=== PATIENT | female | born 1965 | race Caucasian/White ===

== ENCOUNTER 2022-01-15 20:40 | Outpatient (CLI) | payer OTHER, SELFPAY ==
--- NOTE | 2022-02-06 08:46 | W.PM.SLEEP ---
Sleep Study Details Details Interpreting Provider: Aric Aparicio MD Date of Sleep Study: 01/15/22 Sleep Study Details: STUDY TYPE: Hospital-based ? BMI:? 35.8 ORDERING PROVIDER:? Viviana INDICATION:? Concerns about sleep apnea ? SLEEP SUMMARY:? Sleep time 402 minutes, latency 11 minutes, REM latency 245 minutes, efficiency 89.2% RESPIRATORY SUMMARY:? Mean oxygen awake 95, asleep 94, minimum 89 AHI 8.8, RDI 12.7, REM AHI 9.2 Supine AHI 16, supine REM AHI 15.8 Nonsupine AHI 2.8, nonsupine RDI 5.8 PERIODIC LIMB MOVEMENTS OF SLEEP:? None CARDIAC:? Awake 65, asleep 57. No arrhythmias noted IMPRESSION:? Mild obstructive sleep apnea with supine position dependency RECOMMENDATION: Treatment options would include AutoSet CPAP, dental appliance. Weight loss is recommended
== END 2022-01-15 20:41 | disposition home or self-care (01) ==
LOC: SLEEP 20:40
PROVIDERS: PCP Physician Assistant Medical; Visit Provider Physician Assistant Medical
DX: G47.33 Obstructive sleep apnea (adult) (pediatric) (principal)
CPT/HCPCS: 95810

== ENCOUNTER 2022-05-24 09:11 | Outpatient (CLI) | payer OTHER, SELFPAY | END 2022-05-24 09:12 | disposition home or self-care (01) | LOC: NFLDREF 05-26 08:21 | PROVIDERS: PCP Physician Assistant Medical; Referring Provider Physician Assistant Medical; Visit Provider Nurse Practitioner Family | DX: Z79.899 Other long term (current) drug therapy (principal) | CPT/HCPCS: 82306; 84439; 84443 ==

== ENCOUNTER 2022-06-04 13:31 | Outpatient (CLI) | payer OTHER, SELFPAY ==
--- NOTE | 2022-06-04 14:00 | CRLHL7_ITS ---
For Patients: As a result of the Century Cures Act, medical imaging exams and procedure reports are released immediately into your electronic medical record. You may view this report before your referring provider. If you have questions, please contact your health care provider. INDICATION: Low TSH COMPARISON: none TECHNIQUE: Mcdonald scale and color Doppler images were acquired of the thyroid gland. FINDINGS: There is a 7 x 4 x 6 millimeter nodule within the right thyroid lobe. This does not require follow-up. The thyroid echotexture is diffusely heterogeneous. The right lobe measures 4.4 x 1.4 x 1.4 cm and the left lobe measures 3.7 x 0.9 x 1.0 cm in size. The isthmus measures 2 millimeters. The color Doppler images demonstrate decreased vascularity. There is no evidence of cervical lymphadenopathy or parathyroid mass. IMPRESSION: Diffusely heterogeneous thyroid with overall decreased vascularity. Benign 7 millimeter nodule right thyroid lobe. Dictated by Barry Amaral MD @ 06/05/2022 6:55:25 AM (Electronically Signed)
== END 2022-06-04 13:32 | disposition home or self-care (01) ==
LOC: US 13:32
PROVIDERS: PCP Physician Assistant Medical; Visit Provider Physician Assistant Medical
DX: R79.89 Other specified abnormal findings of blood chemistry (principal); E04.1 Nontoxic single thyroid nodule
CPT/HCPCS: 76536

== ENCOUNTER 2023-06-24 10:31 | Outpatient (CLI) | payer OTHER, SELFPAY ==
[2023-06-24 23:37] LABS: Chlamydia DNA Amplified* NOT DETECTED (No Detected); GC DNA Amplified* NOT DETECTED (No Detected)
== END 2023-06-24 10:32 | disposition home or self-care (01) ==
PROVIDERS: PCP Physician Assistant Medical; Visit Provider Physician Assistant Medical
DX: R79.89 Other specified abnormal findings of blood chemistry (principal); E04.1 Nontoxic single thyroid nodule; Z80.41 Family history of malignant neoplasm of ovary; Z13.220 Encounter for screening for lipoid disorders; Z11.3 Encounter for screening for infections with a predominantly sexual mode of transmission
CPT/HCPCS: 80061; 82306; 84305; 84443; 86140; 86304; 86703; 86803; 87491; 87591

== ENCOUNTER 2023-07-08 12:27 | Outpatient (CLI) | payer OTHER, SELFPAY ==
--- OUTSIDE RECORDS SUMMARY | 2023-07-08 12:31 | XMS_ITS | Data Portability ---
Author Name Unknown Address [address] [place] [address] Phone [phone] Organization [place] [facility] [place] Address [address] [place] [address] Care Team Providers Care Career Services Officer Name Role Phone JULIANA HUFF Referring Provider Assessment Encounter Date Assessment Date Assessment LastModified by Organization Details LastModified Time 02/27/2021 02/27/2021 Today I spent a considerable amount of time discussing the patients past medical and personal history, as well as performing a physical examination all of which is documented in it's entirety in the electronic health record. I reviewed the pathophysiology of the disorder, potential contributing and risk factors as well as treatment options to address their complaints. I recommended advanced imaging with CT. Today no imaging was obtained. Meryl has a history of jaw joint noises including TMJ popping,locking and crepitus. From a treatment perspective I recommended a self management treatment approach. Treatment begins with home self management designed to rest the muscles of mastication and reduce inflammation in the temporomandibular joints. This includes heat and ice compresses, eating a soft food or pain-free diet, bilateral chewing identifying and decreasing daytime muscle tension and modification of their sleep position. Today I taught simple jaw exercises designed to improve the jaw mechanics and movement, improve range of mouth opening and improve TM joint fluid circulation to facilitate healing. This includes simple stretch and relaxed breathing. This was both demonstrated and given in written format. Beyond self management I believe that they would benefit from a mandibular intraoral appliance. She would like to understand her coverage with her insurance. The goal of treatment is to improve pain, function and focus on long-term self-management strategies. I believe that by following these treatment recommendations there is a good prognosis for reduction of symptoms. History was obtained from the patient. The patient has 4 diagnoses they would like to address. This case is moderate complexity because of multiple diagnoses with chronic symptoms. Data reviewed included: no records were available today. Risk of complications include social determinants of health. Today time spent may have included a review of past records, history taking, review of diagnoses, contributing factors, treatment plan, diagnostic testing, prognosis, expectations, risks and complications of treatment/no treatment, discussions with other providers and completing documentation was 50 minutes. Cost of care and insurance coverage was reviewed and discussed with the patient. Not available 03/07/2021 17:15:28 Plan of Treatment Reminders Order Date Submit Date Provider Last Modified By Organization Details Last Modified Time Details Appointments None recorded. Lab None recorded. Referral None recorded. Procedures None recorded. Surgeries None recorded. Imaging CT, temporal bone, w/o contrast 2020 021 [facility], [facility], [address], [place], [address], 05:03:44 Medication Orders None recorded. Patient TargetsNo targets recorded. Patient Instructions Encounter Date Encounter Id Patient Instructions Last Modified By Organization Details Last Modified Time 02/27/2021 [id number] Self Care for TMD Not availab le 03/07/2021 17:15:01 oral appliance preparation* DEVEN Not available 03/28/2021 12:25:07 Three Jaw Exercises Not available 03/07/2021 17:15:01 Contributing factors identified at today's appointment include: poor posture, daytime clenching, sleep bruxism, oral habits, stress and tension and difficulty relaxing. Not available 03/07/2021 17:15:18 Reason for Referral None Reported. Results Created Date Observation Date Name Description Value Unit Range Abnormal Flag LastModifiedBy Organization Detail LastModifiedTime 02/28/2003/28/2021 CT, tempo ral bone, w/o contr ast No observ ation record ed. maricel [place] [address], [place], [address], 03/28/2021 12:25:30 Result Notes None recorded. 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 17:14:34 Bilateral crepitus of temporomandibu lar joints on opening Active 2020 ROBBIE PEDRO BDS, [place] [address], [place], [address], [facility] 17:14:36 Bilateral temporomandibu lar joint pain Active 2020 Arthralgia of TMJs ROBBIE PEDRO BDS, [place] [address], [place], [address], [facility] 17:14:54 Episodic tension-type headache Active 2020 ROBBIE PEDRO BDS, [place] [address], [place], [address], [facility] 17:14:58 Problem Notes None recorded. Procedures Surgical History Date Name Laterality Status Provider Name and Address Organization Details Recorded Time cystoscopy completed Sue sheriff [facility] 02/27/2021 12:18:23 open division of tendon of upper arm completed Sue sheriff [facility] 02/27/2021 12:18:34 Breast reduction completed Sue sheriff [facility] 02/27/2021 12:18:43 abdominoplasty completed Sue sheriff [facility] 02/27/2021 12:18:53 [place] Teeth Extraction completed Sue sheriff [facility] 02/27/2021 12:19:05 Imaging Results Imaging Date Name Status LastModified by Organiz ation Details LastModified Time 03/28/2021 CT, temporal bone, w/o contrast completed [facility] [address], [place], [address], 03/28/2021 12:25:30 Procedure Notes None recorded. Medical Equipment None Reported. Allergies No known drug allergies Medications Name Sig Start Date Stop Date Status Note LastModified by Organization Details LastModified Time cyclobenzapr ine 10 mg tablet TK 1 T PO EVERY 8 HOURS PRF MUSCLE SPASMS 02/27 completed Not Available Not Available Not Available prednisone 20 mg tablet TK 1 T PO BID 02/27 completed Not Available Not Available Not Available oxycodone-ac etaminophen 5 mg-325 mg tablet TK 1-2 T PO EVERY 4 HOURS PRN FOR PAIN. 02/27 completed Not Available Not Available Not Available cephalexin 500 mg capsule TK 1 C PO EVERY 8 HOURS UNTIL GONE. TK 1ST DOSE TONIGHT 02/27 completed Not Available Not Available Not Available sertraline 25 mg tablet TAKE 1 TABLET BY MOUTH DAILY 02/27 completed Not Available Not Available Not Available mupirocin 2 % topical ointment THEA EXT AA TID 02/27 completed Not Available Not Available Not Available ondansetron 4 mg disintegrati ng tablet TK 1 T PO EVERY 8 HOURS PRF NAUSEA 02/27 completed Not Available Not Available Not Available bupropion HCl SR 200 mg tablet,12 hr sustained-re lease TAKE ONE TABLET BY MOUTH ONCE DAILY 02/27 completed Not Available Not Available Not Available bupropion HCl XL 300 mg 24 hr tablet, extended release TAKE 1 TABLET BY MOUTH DAILY active Less than 200 mg/da y Not Available Not Available Not Available Vitals Date Recorded Body height Body mass index (BMI) Body weight Body temperature Provider Name and Address Organization Details Last Updated DateTime 02/27/2021 165.1 cm 33.3 kg/m2 36458.47 g 97.5 [degF] JAMEY Garcia - [facility] 02/27/2021 12:11:12 Social History Question Answer Notes LastModified by Organizat ion Details LastModified Time Tobacco Smoking Status Never Smoker JAMEY Garcia - [facility] 02/27/2021 12:17:34 What Is Your Level Of Alcohol Consumption? Occasional [email or web address] Information not available 02/27/2021 Are You Currently Employed? No [email or web address] Information not available 02/27/2021 What Type Of Diet Are You Following? REGULAR [email or web address] Information not available 02/27/2021 What Is The Highest Grade Or Level Of School You Have Completed Or The Highest Degree You Have Received? [id number] [email or web address] Information not available 02/27/2021 Caffeine Use - How Much? 2 Cups [email or web address] Information not available 02/27/2021 Do You Feel Stressed (tense, Restless, Nervous, Or Anxious, Or Unable To Sleep At Night)? [id number] [email or web address] Information not available 02/27/2021 Do You Use Any Illicit Or Recreational Drugs? No [email or web address] Information not available 02/27/2021 Sex: Female Functional Status Question Answer Note LastModified by Organization D etails LastModified Time What is your exercise level? Moderate [email or web address] Information not available 02/27/2021 Mental Status None recorded. Family History Relationship Description Onset Age of this Age Resolved Age Notes Sister Sleep apnea Sister Sleep apnea Father Snoring Medical History Condition Response Coronary Artery Disease N Hyperthyroidism N Premenstrual syndrome (PMS) N MRSA N Emphysema N COPD N Depression N Pneumonia N Anxiety Disorder N Acid Reflux (GERD) N Stroke N Neck Injury N Neurologic Disorder N Rheumatoid Arthritis N Fibromyalgia N Kidney Disease N Post traumatic stress disorder (PTSD) N Brain Tumors N Meningitis N Back pain N Tuberculosis N History of radiation therapy N Asthma N Physical or sexual abuse N Substance Abuse N Peripheral Vascular Disease N Vertigo N Sleep Disorder N Pulmonary Embolism N Glaucoma N Lung Disease N Pacemaker N Serious Illness or Injuries N Back Injury N Liver Disease N Parkinson's Disease N Anemia N Multiple Sclerosis N Immune System Disorder N Heart Attack ([place]) N Diabetes N Hyperlipidemia N Psoriasis N Reflux/GERD N Aneurysm N Heart Disease N Hypertension N Other N Gout N Head Trauma/Injury N Irritable bowel syndrome N Obstructive Sleep Apnea N Muscle, Joint, or Bone Problems N Autoimmune disease N Vision or Eye Problems N Arthritis N Cancer N History of chemotherapy N Headaches N Migraines N Pancreatic disease N Bleeding Disorder N AIDS/HIV N Hepatitis N Neuropathy N Chronic fatigue syndrome N Hypothyroidism N Eating disorder N High Cholesterol N Organ Transplant N Allergies/Hayfever N Stomach Ulcers N Seizures/Epilepsy N Sjogren's syndrome N Dementia N Mental Problems N Osteoporosis N Gynecological HistoryNo gynecological history recorded. Obstetrics History GPAL:G 0 P 0 0 0 0 Past Encounters Encounter ID Performer Location Encounter Start Date Encounter Closed Date Diagnosis/Indication Diagnosis SNOMED-CT Code [id number] ROBBIE PEDRO BDS, [place] [address] [place] [address] 02/27/2021 12:05:39 02/27/2021 15:06:03 Bilateral temporomandibular joint articular disc disorder 4476022977858 9101 Bilateral crepitus of temporomandibular joints on opening [id number] Bilateral temporomandibular joint pain 6261468381086 9105 Episodic t ension-type headache [id number] Health Concerns Section Related Observation LastModified by Organization Detai ls LastModified Time None Recorded Concern Status LastModified by Organization Details LastModified Time None Recorded Advance Directives Directive None Recorded Payers Encounter Date Sequence Insurance Name Policy Number Policy Gilliam Covered Member ID Gilliam Member ID Guarantor Name 02/27/2021 1 [facility] - INDIVIDUAL AND FAMILY (HMO) Meryl Maradiaga [id number] Meryl Maradiaga Notes Date Note Type Note Provider Name and Address Organization Details Recorded Time 1 text/html HPI Notes: general HPI for jaw, face, TMD pain Reported by patient. Onset: started 40 year(s) ago Location: bilateral Quality: dull; aching; sore Severity: pain level 5-10/10; radiating to the ear Duration constant Symptom triggers: no known trigger/insidious Aggravating Factors: yawning; wide mouth opening; chewing; sleeping wrong Alleviating Factors: NSAIDs Associated Symptoms: jaw clicking bilateral; jaw locks closed bilateral; headaches; tinnitus Prior Treatment: soft diet; unarmed security guard/oral appliance/splint Patient presents today for evaluation of a possible temporomandibular disorder. These symptoms are chronic and began with no clear triggering events. Previous consultation include evaluation with his/her dentist. Symptoms are bilateral and aggravated by jaw use and function. The patient is not aware of teeth clenching. Meryl is referred by Dr. Huff for evaluation of her jaw symptoms. She reports clicking in her TMJs. Her jaw pain started a year ago. Meryl reports that she had an oral appliance/ splint which she used years ago. She does notice headaches as well which may be related with jaw. She can't open her mouth all the way. She may experience brief episodes of jaw locking. She may have limited mouth opening even without locking. Ibuprofen helps with the pain reduction. There is no history of trauma to her jaw. Meryl is weaning off of her anti-depressants with the help of her physician. She is in counselling at present. Meryl states that her sleep can be interrupted with night sweats. ROBBIE PEDRO BDS, [place] [address], [place], [address], [facility] 03/07/2021 17:16:56 OBGyn Episode No OBEpisode recorded.
--- NOTE | 2023-07-08 13:00 | US_ITS ---
Patient: JULIETH HARTMAN Facility:?[facility] Patient ID:?[id number] Site Patient ID:?[id number]. Site :?1965 Study:?US-Pelvis TRANSABDOMINAL AND TRANSVAGINAL-07/08/2023 1:10:24 PM Ordering Physician:?BARBRA HICKS Final Report: Indication: Polyp of cervix Technique: Transabdominal and transvaginal pelvic ultrasound Comparison: None available Findings: Uterus is anteverted and measures 6.8 x 3.9 x 4.4 cm. Endometrial stripe thickness is 3 mm. There are 2 small uterine leiomyoma, larger measuring 1.1 cm. Both ovaries appear normal. No adnexal mass or free fluid. Impression: Two small uterine leiomyoma. Otherwise normal. Dictated by Dereje Martinez MD @ 07/09/2023 8:48:07 AM Signed by:?Dereje Martinez MD @07/09/2023 8:48:07 AM (Electronic Signature)
== END 2023-07-08 12:28 | disposition home or self-care (01) ==
LOC: US 12:28
PROVIDERS: PCP Physician Assistant Medical; Visit Provider Physician Assistant Medical
DX: N84.1 Polyp of cervix uteri (principal); D25.9 Leiomyoma of uterus, unspecified
CPT/HCPCS: 76830; 76856

== ENCOUNTER 2023-08-20 12:29 | Outpatient (CLI) | payer BC, SELFPAY ==
--- OUTSIDE RECORDS SUMMARY | 2023-08-20 12:34 | XMS_ITS | Data Portability ---
Author Organization [place] [facility] Address [address] [place] [address] Care Team Providers Care Data Review Specialist Name Role Phone JULIANA HUFF Referring Provider [...] CT, temporal bone, w/o contrast 2020 021 DEVEN [place], [address], [place], [address], 05:03:44 Medication Orders None recorded. Patient TargetsNo targets recorded. Patient Instructions Encounter Date Encounter Id Patient Instructions Last Modified By Organization Details Last Modified Time 02/27/2021 [id number] Self Care for TMD Not availab le [...] ast No observ ation record ed. maricel [place] [address], [place], [address], 03/28/2021 12:25:30 Result Notes None recorded. 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 History of intermittent locking and popping ROBBIE PEDRO BDS, [place] [address], [place], [address], [place] [facility] 17:14:34 Bilateral crepitus of temporomandibu lar joints on opening Active 2020 ROBBIE PEDRO BDS, [place] [address], [place], [address], [place] [facility] 17:14:36 Bilateral temporomandibu lar joint pain Active 2020 Arthralgia of TMJs ROBBIE PEDRO BDS, [place] [address], [place], [address], [facility] 17:14:54 Episodic tension-type headache Active 2020 ROBBIE PEDRO BDS, [place] [address], [place], [address], [facility] 17:14:58 Problem Notes None recorded. Procedures Surgical History Date Name Laterality Status Provider Name and Address Organization Details Recorded Time cystoscopy completed Sue sheriff [facility] 02/27/2021 12:18:23 open division of tendon of upper arm completed Sue sheriff [facility] 02/27/2021 12:18:34 Breast reduction completed Sue sheriff [facility] 02/27/2021 12:18:43 abdominoplasty completed Sue sheriff [facility] 02/27/2021 12:18:53 [place] Teeth Extraction completed Sue sheriff [facility] 02/27/2021 12:19:05 Imaging Results Imaging Date Name Status LastModified by Adrianna acevedo Details LastModified Time 03/28/2021 CT, temporal bone, w/o contrast completed [facility] [address], [place], [address], 03/28/2021 12:25:30 Procedure Notes None recorded. Medical [...] Updated DateTime 02/27/2021 165.1 cm 33.3 kg/m2 52798.47 g 97.5 [degF] Sue [facility] - [facility] 02/27/2021 12:11:12 Social History Question Answer Notes LastModified by Organizat ion Details LastModified Time Tobacco Smoking Status Never Smoker JAMEY Garcia - [facility] 02/27/2021 12:17:34 What Is Your Level Of Alcohol Consumption? Occasional [email or web address] Information not available 02/27/2021 Are You Currently Employed? No [email or web address] Information not available 02/27/2021 What Type Of Diet Are You Following? REGULAR Information not available 02/27/2021 What Is The Highest Grade Or Level Of School You Have Completed Or The Highest Degree You Have Received? [id number] [email or web address] Information not available 02/27/2021 Caffeine Use - How Much? 2 Cups [email or web address] Information not available 02/27/2021 Do You Feel Stressed (tense, Restless, Nervous, Or Anxious, Or Unable To Sleep At Night)? [id number] [email or web address] Information not available 02/27/2021 Do You Use Any Illicit Or Recreational Drugs? No [email or web address] Information not available 02/27/2021 Sex: Female Functional Status Question Answer Note LastModified by Organization D etails LastModified Time What is your exercise level? Moderate [email or web address] Information not available 02/27/2021 Mental Status None recorded. Family History Relationship Description Onset Age of this Age Resolved Age Notes Sister Sleep apnea Sister Sleep apnea Father Snoring Medical History Condition Response Coronary Artery Disease N Other N Gout N Chronic fatigue syndrome N Hyperthyroidism N Premenstrual syndrome (PMS) N MRSA N Emphysema N Head Trauma/Injury N Irritable bowel syndrome N COPD N Depression N Glaucoma N Lung Disease N Hypothyroidism N Pneumonia N Pacemaker N Obstructive Sleep Apnea N Anxiety Disorder N Muscle, Joint, or Bone Problems N Autoimmune disease N Vision or Eye Problems N Arthritis N Serious Illness or Injuries N Acid Reflux (GERD) N Cancer N Stroke N Neck Injury N Eating disorder N Back Injury N High Cholesterol N Neurologic Disorder N History of chemotherapy N Liver Disease N Organ Transplant N Rheumatoid Arthritis N Fibromyalgia N Headaches N Kidney Disease N Allergies/Hayfever N Post traumatic stress disorder (PTSD) N Parkinson's Disease N Migraines N Brain Tumors N Anemia N Multiple Sclerosis N Immune System Disorder N Meningitis N Pancreatic disease N Heart Attack ([place]) N Stomach Ulcers N Diabetes N Back pain N Bleeding Disorder N Seizures/Epilepsy N Sjogren's syndrome N Tuberculosis N AIDS/HIV N Hyperlipidemia N History of radiation therapy N Dementia N Asthma N Physical or sexual abuse N Substance Abuse N Psoriasis N Peripheral Vascular Disease N Reflux/GERD N Mental Problems N Vertigo N Sleep Disorder N Hepatitis N Aneurysm N Neuropathy N Heart Disease N Pulmonary Embolism N Hypertension N Osteoporosis N Gynecological HistoryNo gynecological history recorded. Obstetrics History GPAL:G 0 P 0 0 0 0 Past Encounters Encounter ID Performer Location Encounter Start Date Encounter Closed Date Diagnosis/Indication Diagnosis SNOMED-CT Code [id number] ROBBIE PEDRO [place]DS[place] [address] [place] [address] 02/27/2021 12:05:39 02/27/2021 15:06:03 Bilateral temporomandibular joint articular disc disorder 9252552677785 9101 Bilateral crepitus of temporomandibular joints on opening [id number] Bilateral temporomandibular joint pain 2117054410025 9105 Episodic t ension-type headache 660324415 Health Concerns Section Related Observation LastModified by Organization Detai ls LastModified Time None Recorded Concern Status LastModified by Organization Details LastModified Time None Recorded Advance Directives Directive None Recorded Payers Encounter Date Sequence Insurance Name Policy Number Policy Gilliam Covered Member ID Gilliam Member ID Guarantor Name 02/27/[address] [facility] - INDIVIDUAL AND FAMILY (HMO) Meryl Maradiaga [id number] Meryl Maradiaga Notes Date Note Type Note [...] bilateral; headaches; tinnitus Prior Treatment: soft diet; pool lifeguard/oral appliance/splint Patient presents today for evaluation of [...] with night sweats. ROBBIE PEDRO [place]DS, [place] [address], [place], [address], [facility] 03/07/2021 17:16:56 OBGyn Episode No OBEpisode recorded.
--- NOTE | 2023-08-20 13:20 | CRLHL7_ITS ---
For Patients: As a result of the Cures Act, medical imaging exams and procedure reports are released immediately into your electronic medical record. You may view this report before your referring provider. If you have questions, please contact your health care provider. BILATERAL DIGITAL SCREENING MAMMOGRAM WITH COMPUTER-AIDED DETECTION AND TOMOSYNTHESIS CLINICAL HISTORY: Routine screening exam. COMPARISON: 01/07/2018, 04/05/2016, 03/29/2016, 09/07/2013. TECHNIQUE: Digital mammogram in CC and MLO projections including computer-aided detection (CAD). Tomosynthesis was used in this interpretation. BREAST COMPOSITION: The breasts are heterogeneously dense, which may obscure small masses. FINDINGS: RIGHT Breast: Focal asymmetric density 12 o`clock 3 cm from the nipple. LEFT Breast: No suspicious findings. IMPRESSION: RIGHT breast asymmetry/mass. RECOMMENDATIONS: Additional mammographic views of the RIGHT breast including 3D spot compression CC/MLO. RIGHT breast ultrasound may also be required. A member of the radiology staff will be contacting the patient to arrange for this additional study. BI-RADS Category 0: Incomplete: Need Additional Imaging Evaluation and/or Prior Mammograms for Comparison A lay language report of this examination will be provided to the patient. Dictated by Barry Amaral MD @ 08/23/2023 1:36:22 PM humblej/Dictated by: Barry Amaral MD @ 08/23/2023 1:36:00 PM (Electronically Signed)
== END 2023-08-20 12:30 | disposition home or self-care (01) ==
LOC: MAMMO 12:32
PROVIDERS: PCP Physician Assistant Medical; Visit Provider Physician Assistant Medical
DX: Z12.31 Encounter for screening mammogram for malignant neoplasm of breast (principal); N63.10 Unspecified lump in the right breast, unspecified quadrant
CPT/HCPCS: 77063; 77067

== ENCOUNTER 2023-09-04 09:18 | Outpatient (CLI) | payer BC, SELFPAY ==
--- OUTSIDE RECORDS SUMMARY | 2023-09-04 09:20 | XMS_ITS | Data Portability ---
Author Organization [place] [facility] Address [address] [place] [address] Care Team Providers Care Vocational Nursing Instructor Name Role Phone JULIANA HUFF Referring Provider [...] temporal bone, w/o contrast 2020 021 DEVEN [place], [address], [place], [address], 05:03:44 Medication Orders None recorded. Patient TargetsNo targets recorded. Patient Instructions Encounter Date Encounter Id Patient Instructions Last Modified By Organization Details Last Modified Time 02/27/2021 [id number] Self Care for TMD Not availab le [...] ast No observ ation record ed. maricel [place] [address], [place], [address], 03/28/2021 12:25:30 Result Notes None recorded. 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 History of intermittent locking and popping ROBBIE PEDRO BDS, [place] [address], [place], [address], [place] [facility] 17:14:34 Bilateral crepitus of temporomandibu lar joints on opening Active 2020 ROBBIE PEDRO BDS, [place] [address], [place], [address], [place] [facility] 17:14:36 Bilateral temporomandibu lar joint pain Active 2020 Arthralgia of TMJs ROBBIE PEDRO BDS, [place] [address], [place], [address], [facility] 17:14:54 Episodic tension-type headache Active 2020 ROBBIE PEDRO BDS, [place] [address], [place], [address], [facility] 17:14:58 Problem Notes None recorded. Procedures Surgical History Date Name Laterality Status Provider Name and Address Organization Details Recorded Time cystoscopy completed Sue sheriff [facility] 02/27/2021 12:18:23 open division of tendon of upper arm completed Sue sheriff [facility] 02/27/2021 12:18:34 Breast reduction completed Sue sheriff [facility] 02/27/2021 12:18:43 abdominoplasty completed Sue sheriff [facility] 02/27/2021 12:18:53 [place] Teeth Extraction completed Sue sheriff [facility] 02/27/2021 12:19:05 Imaging Results Imaging Date Name Status LastModified by Adrianna [email or web address] Details LastModified Time 03/28/2021 CT, temporal bone, w/o contrast completed [facility] [address], [place], [address], 03/28/2021 12:25:30 Procedure Notes None recorded. Medical [...] Updated DateTime 02/27/2021 165.1 cm 33.3 kg/m2 11188.47 g 97.5 [degF] Sue CONCEPCION - [facility] 02/27/2021 12:11:12 Social History Question Answer Notes LastModified by Organizat ion Details LastModified Time Tobacco Smoking Status Never Smoker JAMEY Garcia - [facility] 02/27/2021 12:17:34 What Is Your Level Of Alcohol Consumption? Occasional [email or web address] Information not available 02/27/2021 Are You Currently Employed? No [email or web address] Information not available 02/27/2021 What Type Of Diet Are You Following? REGULAR Information not available 02/27/2021 What Is The Highest Grade Or Level Of School You Have Completed Or The Highest Degree You Have Received? [id number] [email or web address] Information not available 02/27/2021 Caffeine Use - How Much? 2 Cups [email or web address] Information not available 02/27/2021 Do You Feel Stressed (tense, Restless, Nervous, Or Anxious, Or Unable To Sleep At Night)? [id number] [email or web address] Information not available 02/27/2021 Do You Use Any Illicit Or Recreational Drugs? No [email or web address] Information not available 02/27/2021 Sex: Female Functional Status Question Answer Note LastModified by Organization D etails LastModified Time What is your exercise level? Moderate [email or web address] Information not available 02/27/2021 Mental Status None recorded. Family History Relationship Description Onset Age of this Age Resolved Age Notes Sister Sleep apnea Sister Sleep apnea Father Snoring Medical History Condition Response Coronary Artery Disease N Gout N Other N Chronic fatigue syndrome N Hyperthyroidism N MRSA N Premenstrual syndrome (PMS) N Head Trauma/Injury N Emphysema N Irritable bowel syndrome N COPD N Depression N Lung Disease N Hypothyroidism N Glaucoma N Pneumonia N Pacemaker N Obstructive Sleep Apnea N Anxiety Disorder N Muscle, Joint, or Bone Problems N Autoimmune disease N Vision or Eye Problems N Arthritis N Serious Illness or Injuries N Acid Reflux (GERD) N Cancer N Stroke N Eating disorder N Neck Injury N Back Injury N High Cholesterol N History of chemotherapy N Neurologic Disorder N Liver Disease N Organ Transplant N Rheumatoid Arthritis N Headaches N Fibromyalgia N Kidney Disease N Allergies/Hayfever N Parkinson's Disease N Post traumatic stress disorder (PTSD) N Migraines N Brain Tumors N Anemia N Multiple Sclerosis N Immune System Disorder N Meningitis N Pancreatic disease N Heart Attack (MD) N Stomach Ulcers N Diabetes N Back pain N Bleeding Disorder N Seizures/Epilepsy N Sjogren's syndrome N Tuberculosis N AIDS/HIV N History of radiation therapy N Hyperlipidemia N Dementia N Asthma N Physical or sexual abuse N Psoriasis N Substance Abuse N Peripheral Vascular Disease N Reflux/GERD N Mental Problems N Vertigo N Sleep Disorder N Aneurysm N Hepatitis N Neuropathy N Heart Disease N Pulmonary Embolism N Hypertension N Osteoporosis N Gynecological HistoryNo gynecological history recorded. Obstetrics History GPAL:G 0 P 0 0 0 0 Past Encounters Encounter ID Performer Location Encounter Start Date Encounter Closed Date Diagnosis/Indication Diagnosis SNOMED-CT Code [id number] ROBBIE [place] [address] [place] [address] 02/27/2021 12:05:39 02/27/2021 15:06:03 Bilateral temporomandibular joint articular disc disorder 1208833611474 9101 Bilateral crepitus of temporomandibular joints on opening [id number] Bilateral temporomandibular joint pain 1713106970219 9105 Episodic t ension-type headache [id number] Health Concerns Section Related Observation LastModified by Organization Detai ls LastModified Time None Recorded Concern Status LastModified by Organization Details LastModified Time None Recorded Advance Directives Directive None Recorded Payers Encounter Date Sequence Insurance Name Policy Number Policy Gilliam Covered Member ID Gilliam Member ID Guarantor Name 02/27/2021 1 [facility] (HMO) Meryl Maradiaga [id number] Meryl Maradiaga Notes Date Note Type Note [...] bilateral; headaches; tinnitus Prior Treatment: soft diet; truck guard/oral appliance/splint Patient presents today for evaluation [...] with night sweats. ROBBIE PEDRO BDS, [place] [address], [place], [address], [facility] 03/07/2021 17:16:56 OBGyn Episode No OBEpisode recorded.
--- NOTE | 2023-09-04 09:45 | CRLHL7_ITS ---
For Patients: As a result of the Century Cures Act, medical imaging exams and procedure reports are released immediately into your electronic medical record. You may view this report before your referring provider. If you have questions, please contact your health care provider. DIGITAL DIAGNOSTIC RIGHT MAMMOGRAM USING TOMOSYNTHESIS AND COMPUTER-AIDED DETECTION RIGHT BREAST ULTRASOUND CLINICAL HISTORY: RIGHT breast mass/asymmetry. COMPARISON: 08/20/2023. TECHNIQUE: Digital RIGHT mammogram in two projections with computer-aided detection. Tomosynthesis was used in this interpretation. Real-time ultrasound imaging of RIGHT breast with imaging documentation. Scanning was performed by both the technologist and the radiologist. BREAST COMPOSITION: The breast is heterogeneously dense, which may obscure small masses. FINDINGS: 3D spot compression CC/MLO RIGHT breast mammogram images submitted. Persistent dense tissue behind the RIGHT nipple in the upper RIGHT breast. No architectural distortion. No suspicious calcifications. Targeted RIGHT breast ultrasound performed 11-1 o`clock 3 cm from the nipple. Normal fibroglandular tissue is present. Scar tissue is present more inferiorly about the nipple related to reduction mammoplasty. No suspicious findings. IMPRESSION: No evidence of malignancy. RECOMMENDATIONS: Annual bilateral screening mammography. Results and recommendations discussed with the patient. BI-RADS Category 2: Benign Dictated by Barry Amaral MD @ 09/04/2023 1:15:32 PM jj/Dictated by: Barry Amaral MD @ 09/04/2023 1:15:00 PM (Electronically Signed)
--- NOTE | 2023-09-04 10:15 | CRLHL7_ITS ---
For Patients: As a result of the Cures Act, medical imaging exams and procedure reports are released immediately into your electronic medical record. You may view this report before your referring provider. If you have questions, please contact your health care provider. PLEASE SEE DIGITAL DIAGNOSTIC RIGHT MAMMOGRAM PERFORMED SAME DAY CRL:kinza echols/Dictated by: Barry Amaral MD @ 09/04/2023 1:15:00 PM (Electronically Signed)
== END 2023-09-04 09:19 | disposition home or self-care (01) ==
LOC: MAMMO 09:19
PROVIDERS: PCP Physician Assistant Medical; Visit Provider Physician Assistant Medical
DX: N63.10 Unspecified lump in the right breast, unspecified quadrant (principal); R92.8 Other abnormal and inconclusive findings on diagnostic imaging of breast
CPT/HCPCS: 76642; 77065; G0279

== ENCOUNTER 2024-07-16 12:07 | Outpatient (CLI) | payer BC, SELFPAY | END 2024-07-16 12:08 | disposition home or self-care (01) | PROVIDERS: PCP Physician Assistant Medical; Visit Provider Physician Assistant Medical | DX: Z00.01 Encounter for general adult medical examination with abnormal findings (principal); E03.9 Hypothyroidism, unspecified; L60.3 Nail dystrophy; M25.59 Pain in other specified joint; E78.5 Hyperlipidemia, unspecified; Z79.899 Other long term (current) drug therapy | CPT/HCPCS: 80053; 80061; 82306; 82607; 84443; 84550; 86038; 86140; 86200; 86431; 86618; 86812 ==

== ENCOUNTER 2024-08-11 14:17 | Outpatient (CLI) | payer BC, SELFPAY ==
--- NOTE | 2024-08-11 14:30 | MR_ITS ---
EXAM: MRI of the LEFT KNEE, without contrast CLINICAL: Bilateral knee osteoarthritis. Evaluate for medial meniscal tear. COMPARISONS: X-ray to 1425. TECHNICAL: Multiplanar multisequence MRI of the left knee was obtained. SEDATION: None. CONTRAST: None. FINDINGS: Ligaments: ACL: Intact and unremarkable. PCL: Intact and unremarkable. MCL: Intact and unremarkable. LCL: Intact and unremarkable. Posterolateral corner: Popliteus, biceps femoris, iliotibial band, and the popliteofibular ligament appear intact. Posteromedial corner: Semimembranosus, pes anserine tendons and posterior oblique ligament appear intact. Extensor mechanism: Patellar tendon: Intact, without tendinopathy. Quadriceps tendon: Intact, without tendinopathy. Retinacula: Medial and lateral retinacula are intact. Fat pads: Unremarkable infrapatellar Hoffa's, quadriceps and prefemoral fat pads. Patellofemoral joint: Patella: Grade 3 chondral loss is seen to involve the medial patellar facet extending into the patellar median ridge on axial series 4 images 9-10. Deep chondral delamination also involves the junction of the lateral facet and patellar median ridge on axial series 4 image 10. Trochlea: There is chondral heterogeneity and chondral fissuring involving the central trochlea on sagittal series 6 image 17. Trochlear cartilage otherwise appears maintained. Medial compartment: Medial meniscus: There is complex tearing involving the posterior horn extending into the junction with the body segment on sagittal series 6 images 9-11 and coronal series 8 images 20-22. There is mild inferior displacement of torn meniscal tissue along the peripheral undersurface of the junction of the body and posterior horn on coronal series 8 image 21. Medial cartilage: Grade 2-3 chondral loss and chondral fissuring involves the medial tibial plateau with mild subchondral reactive marrow edema. Small segment of high-grade chondral loss involves the peripheral posterior nonweightbearing medial femoral condyle on axial series 4 images 14-15. Lateral compartment: Lateral meniscus: No evidence of discrete meniscal tear or meniscal displacement. Lateral cartilage: Grade 2-3 chondral loss involves the posterior nonweightbearing lateral femoral condyle and medial aspect of the weightbearing lateral femoral condyle. Lateral tibial plateau cartilage is maintained. Knee joint: Effusion: Physiologic left knee effusion. Intra-articular bodies:?No convincing bodies identified. Popliteal cyst: None. Bones: No suspicious bone marrow signal alteration or fracture line. IMPRESSION: 1. Tearing of the medial meniscus as above with mild inferior displacement of torn meniscal tissue along the peripheral undersurface of the junction of the body and posterior horn medial meniscus. 2. Tricompartmental chondral loss as above. 3. No evidence of ligamentous injury or fracture. JCZ Electronically signed on 08/12/2024 8:46:00 AM by Jonn Harrington D.O.
== END 2024-08-11 14:18 | disposition home or self-care (01) ==
LOC: MRI 14:18
PROVIDERS: PCP Physician Assistant Medical; Visit Provider Physician Assistant Surgical
DX: M17.0 Bilateral primary osteoarthritis of knee (principal); S83.242A Other tear of medial meniscus, current injury, left knee, initial encounter
CPT/HCPCS: 73721

== ENCOUNTER 2024-08-31 09:56 | Outpatient (CLI) | payer BC, SELFPAY | END 2024-08-31 09:57 | disposition home or self-care (01) | LOC: NFLDREF 09-04 08:43 | PROVIDERS: PCP Physician Assistant Medical; Referring Provider Physician Assistant Medical; Visit Provider Physician Assistant Medical | DX: Z01.818 Encounter for other preprocedural examination (principal) | CPT/HCPCS: 80048 ==

== ENCOUNTER 2024-09-07 06:04 | Day surgery (SDC) | payer BC, SELFPAY ==
[2024-09-07] VITALS (11 sets, daily range): BP systolic 95–113; BP diastolic 60–94; PULSE 47–67; RESP 14–19; TEMP 36.1–36.4; O2SAT 94–99; BMI 33.0
[2024-09-07] MEDS: SODIUM CHLORIDE 0.9 % (FLUSH) 10 ML SYRINGE IVF (06:52)
[2024-09-07] MEDS: LACTATED RINGERS 1000 ML 1,000 ML 100 ML IV (06:52)
--- NOTE | 2024-09-07 06:52 | W.PM.H&PU ---
History & Physical Update History & Physical Update H&P Reviewed and patient assessed: No changes noted
[2024-09-07] MEDS: CEFAZOLIN 1 GM inj IVP (07:27)
[2024-09-07] MEDS: ROPIVACAINE 0.5% 30 ML 150 MG INJECTION (07:50)
--- NOTE | 2024-09-07 08:01 | P.ORPRC_ITS ---
Procedure Note Date of procedure: 09/07/24 Procedure: PREOPERATIVE DIAGNOSIS: 1. Left knee medial meniscus tear POSTOPERATIVE DIAGNOSIS: 1. Left knee medial meniscus tear PROCEDURE: 1. Left knee arthroscopic partial medial meniscectomy SURGEON: Brian Steiner M.D. BRINE ROOM LABORER: Shirin Brown PA-C. Of note, an financial services assistant was critical for this case to aid in patient positioning, knee manipulation, instrument exchange, and closure. ANESTHESIA: Spinal EBL: 2ml TOURNIQUET: 30 min at 300 torr COMPLICATIONS: None evident INDICATIONS: The patient is a pleasant 59-year-old female who has experienced left knee pain particularly with any twisting or turning. Physical exam was concerning for medial meniscus tear, this was confirmed on MRI. Additionally, attempted nonoperative management has been tried, and failed. Thus, surgery was recommended. FINDINGS: Complex tear of the posterior horn medial meniscus. Primarily radial in direction but also had some longitudinal and horizontal splinting. Grade 2 chondromalacia medial compartment of the plateau broadly and the weight-bearing medial femoral condyle. Relatively healthy articular cartilage lateral compartment with intact lateral meniscus. ACL and PCL intact. Grade 3 chondromalacia trochlear groove and grade 2-3 patella DESCRIPTION OF PROCEDURE: After a thorough discussion of risks, benefits, and alternatives, the patient was brought to the operating room and placed upon the operating table. Induction of anesthesia was undertaken as previously noted. 2g iv Ancef was administered within 1 hr of incision preoperatively. Appropriate time-out was performed identifying proper patient, site, and procedure. The left lower extremity was prepped and draped in the appropriate sterile fashion using ChloraPrep. The limb was exsanguinated and tourniquet inflated. Anterolateral and anteromedial portals were established with an 11 blade, and a diagnostic arthroscopy was performed. This identified the findings as noted above. Following the diagnostic arthroscopy, a partial medial menisectomy was performed with the combination of basket forceps and a motorized shaver. Following this, the meniscus was re-probed and found to be stable. Approximately 20-25% of the overall meniscus required resection. At this stage, the shaver was reinserted into the suprapatellar pouch and all remaining meniscal debris was evacuated. Instruments were removed, excess fluid was drained, and closure performed with 4-0 Monocryl with Steri-Strips. Dressings were applied, the tourniquet deflated, and the patient was awoken from anesthesia and transferred to the PACU in stable condition. PLAN: 1. Weightbear as tolerated operative extremity. Crutch / walker ambulation assistance PRN. Straight leg raise to be initiated starting tomorrow by the patient. 2. Ice, acetominophen and/or ibuprofen, and Oxycodone for pain as needed. 3. Knee range of motion and quad sets/straight leg raise regularly 4. Follow up with PA visit in 7-10 days. for a wound check. Initiate physical therapy at that time
--- NOTE | 2024-09-07 08:04 | P.ANES_ITS ---
Anesthesia Charges Start Date/Time Anesthesia Start Date: 09/07/24 Anesthesia Start Time: 07:14 Stop Date/Time Anesthesia Stop Date: 09/07/24 Anesthesia Stop Time: 08:03 Coding CPT Codes CPT Codes: ANESTH KNEE JOINT SURGERY - 26848 ([id number]) P2 - PATIENT W/MILD SYST DISEASE, QK - STATION OPERATOR 2-4 CNCRNT ANES PROC, QX - WELCOME HOSTESS SVC W/ MD MED DIRECTION
--- NOTE | 2024-09-07 08:04 | W.ANESCHARGE ---
Anesthesia Charges Start Date/Time Anesthesia Start Date: 09/07/24 Anesthesia Start Time: 07:14 Stop Date/Time Anesthesia Stop Date: 09/07/24 Anesthesia Stop Time: 08:03 Coding CPT Codes CPT Codes: ANESTH KNEE JOINT SURGERY - 93028 ([id number]) P2 - PATIENT W/MILD SYST DISEASE, QK - VETERINARIAN HELPER 2-4 CNCRNT ANES PROC, QX - STAFF TRAINER SVC W/ MD MED DIRECTION
--- NOTE | 2024-09-07 08:18 | SUR.PHASEI ---
Patient arrived in PACU appropriate and awake. Denies pain or nausea, unable to feel touch of move lower extremities at this time.
--- NOTE | 2024-09-07 08:25 | P.ANES_ITS ---
Anesthesia Charges Start Date/Time Anesthesia Start Date: 09/07/24 Anesthesia Start Time: 07:14 Stop Date/Time Anesthesia Stop Date: 09/07/24 Anesthesia Stop Time: 08:03 Coding CPT Codes CPT Codes: ANESTH KNEE JOINT SURGERY - 81778 ([id number]) QK - PUNCHER 2-4 CNCRNT ANES PROC, QX - RECEIVING ASSOCIATE SVC W/ MD MED DIRECTION, P2 - PATIENT W/MILD SYST DISEASE
--- NOTE | 2024-09-07 08:25 | W.ANESCHARGE ---
Anesthesia Charges Start Date/Time Anesthesia Start Date: 09/07/24 Anesthesia Start Time: 07:14 Stop Date/Time Anesthesia Stop Date: 09/07/24 Anesthesia Stop Time: 08:03 Coding CPT Codes CPT Codes: ANESTH KNEE JOINT SURGERY - 70357 ([id number]) QK - COMMUNICATIONS AGENT 2-4 CNCRNT ANES PROC, QX - CEMENT KILN OPERATOR SVC W/ MD MED DIRECTION, P2 - PATIENT W/MILD SYST DISEASE
--- NOTE | 2024-09-07 08:32 | SUR.PHASEI ---
Patient meets discharge criteria from PACU. Patient stated her itching around her abdomen has improved in the last 30 minutes. Reported to Jaciel in SDS.
== END 2024-09-07 09:39 | disposition home or self-care (01) ==
LOC: OR 06:04
PROVIDERS: PCP Physician Assistant Medical; Visit Provider Orthopaedic Surgery Sports Medicine
PROC: (CPT 29870; principal; 2024-09-07 07:15)
DX: S83.232A Complex tear of medial meniscus, current injury, left knee, initial encounter (principal); M94.262 Chondromalacia, left knee
CPT/HCPCS: 29880; 01400; J0690; J1100; J2250; J2405; J2704; J2795; J3010; J7120

== ENCOUNTER 2024-10-21 10:56 | Outpatient (CLI) | payer BC, SELFPAY ==
--- NOTE | 2024-10-21 11:30 | CRLHL7_ITS ---
For Patients: As a result of the Century Cures Act, medical imaging exams and procedure reports are released immediately into your electronic medical record. You may view this report before your referring provider. If you have questions, please contact your health care provider. INDICATION: BILATERAL SCREENING MAMMOGRAM, ASYMPTOMATIC 59 Y/O FEMALE COMPARISON: 09/04/2023, 08/20/2023, 01/07/2018 TECHNIQUE: Digital mammogram in CC and MLO projections including computer-aided detection (CAD) and tomosynthesis. BREAST COMPOSITION: There are scattered areas of fibroglandular density. FINDINGS: No suspicious findings. ASSESSMENT: BI-RADS 2 Benign RECOMMENDATION: Annual screening mammogram. A lay language report of this examination will be provided to the patient. Dictated by: Barry Amaral MD @ 10/22/2024 09:59:32 (Electronically Signed)
== END 2024-10-21 10:57 | disposition home or self-care (01) ==
LOC: MAMMO 10:57
PROVIDERS: PCP Physician Assistant Medical; Visit Provider Physician Assistant Medical
DX: Z12.31 Encounter for screening mammogram for malignant neoplasm of breast (principal)
CPT/HCPCS: 77063; 77067